=== PATIENT | male | born 1945 | race Caucasian/White ===

== ENCOUNTER 2017-08-30 14:05 | Outpatient (CLI) ==
[2016-04-05 12:50] VITALS: BMI 25.7
--- NOTE | 2017-08-30 15:35 | DI ---
EXAM: Radiographs, cervical spine HISTORY: Neck pain. COMPARISON: None available. TECHNIQUE: Six views. FINDINGS: Curvature and alignment are normal. Vertebral body heights are maintained. There is mild loss of disc height at C5-6 and moderate loss of disc height at C6-7. Endplate osteophyte formation seen in the lower cervical spine. Uncovertebral hypertrophy is greater in the lower cervical spine. Multilevel facet arthropathy is generally mild. No fracture or subluxation identified. There is p robably multilevel neural foraminal narrowing due to the degenerative changes. Prevertebral soft tis sues are unremarkable. The lung apices are clear. IMPRESSION: Moderate degenerative changes, greater in the lower cervical spine. Correlate with MRI if further ev aluation is needed.
== END 2017-08-30 14:06 | disposition home or self-care (01) ==
LOC: RAD 14:05
PROVIDERS: ATTEND Family Medicine
DX: M54.2 Cervicalgia (principal); M54.12 Radiculopathy, cervical region

== ENCOUNTER 2017-09-07 10:06 | Outpatient (CLI) ==
[2016-04-05 12:50] VITALS: BMI 25.7
--- NOTE | 2017-09-07 12:47 | CT ---
EXAM: CT cervical spine without contrast. HISTORY: Neck pain COMPARISON: Cervical spine x-ray 08/30/2017 TECHNIQUE: Serial axial images of the cervical spine were obtained from the skull base through the l stewart apices without contrast. These were viewed in multiple planes. FINDINGS: Vertebral bodies demonstrate no acute compression fracture or subluxation. There is multi level anterior disc osteophytes. Posterior disc osteophytes are present at C5-C7. There is minimal facet arthropathy. The odontoid process is unremarkable. The C1 ring is intact. At C5-C6 and C6-C7, there is bilateral moderate neural foraminal narrowing. There is no central narr owing noted at any level. The soft tissues demonstrate few scattered cervical lymph nodes. The thyr oid is normal. The lung apices are clear.. IMPRESSION: 1. Degenerative disease of the cervical spine with no acute compression fracture or subluxation. 2. Bilateral moderate neural foraminal narrowing noted at C5-C6 and C6-C7.
== END 2017-09-07 10:07 | disposition home or self-care (01) ==
LOC: RAD 10:06
PROVIDERS: ATTEND Family Medicine
DX: M54.2 Cervicalgia (principal)